=== PATIENT | male | born 1980 | race Two or more races ===

== ENCOUNTER 2025-06-01 16:23 | Emergency (ER) | payer SELFPAY ==
[~2025-06-01] VITALS: Ht 177.8 cm; Wt 77.1 kg
[2025-06-01 16:26] VITALS: BP 133/100; RESP 14; TEMP 98.7; O2SAT 99
--- NOTE | 2025-06-01 16:34 | ECG ---
[facility] Test Date: 2025-06-01 Test Time: 16:33:15 Pat Name: SHIRA KAPADIA Department: ED Room: Gender: M Scrum Master: OSCAR : 1980 Requested By: VINNIE BISHOP Order Number: [id number] Reading MD: Measurements Intervals Cardwell Rate: 67 P: 20 ID: [id number] QRS: 64 QRSD: 74 T: 51 QT: 383 QTc: 405 Interpretive Statements Sinus rhythm Baseline wander in lead(s) V5 Please click the below link to view image of tracing.
[2025-06-01] MEDS ORDERED: LIDOCAINE VISCOUS 2% 15ML UD PO ONE (16:45)
[2025-06-01] MEDS ORDERED: PANTOPRAZOLE 40 MG TAB PO ONE (16:45)
[2025-06-01] MEDS ORDERED: SUCRALFATE 1 GM TAB PO ONE (16:45)
[2025-06-01] MEDS ORDERED: SODIUM CHLORIDE 0.9% 1,000 ML IV ONE (16:45)
[2025-06-01 16:58] VITALS: PULSE 67
--- NOTE | 2025-06-01 16:58 | ED.PDOC ---
HPI Comments HPI: 44 year old male presents to the emergency department with a chief complaint of chest pain onset 2 days. Patient states he has been experiencing chest pain for the past 2 days, described as pressure sensation. Patient drinks ETOH daily, for decades. Spouse and daughter are with patient, patient states he wants help to quit ETOH. Denies dizziness, headache, nausea, vomiting, diarrhea, shortness of breath. No other symptoms or modifying factors present at this time. Initial Vitals BP: 133/100 HR: 64 RR: 14 O2 Sat: 99% Temp: 98.7 F Past Medical history: ETOH abuse Past Surgical history: Hysterectomy, Medications: Denies Social History: Denies smoking, and drug use. uses ETOH daily. Allergies: NKDA Anrold: cp, etoh, normal exam HPI: Poor Historian. REVIEW OF SYSTEMS: CONSTITUTIONAL: Denies acute: fever, diaphoresis, chills, generalized weakness. HEAD: Denies acute: headache, photophobia Eyes: Denies acute: Double vision, vision loss, eye pain, eye discharge. EARS: Denies acute: tinnitus, hearing loss, ear discharge, ear pain, THROAT: Denies acute: sore throat, swelling, difficulty swallowing , pain with swallowing, change in voice. NECK: Denies acute: neck pain, neck swelling, stiff neck. HEART: Denies acute : palpitations, LUNGS: Denies acute: SOB, wheezing, cough, hemoptysis ABDOMEN: Denies acute: abdominal pain, Nausea, Vomiting, diarrhea, melena , hematemesis, hematochezia SKIN: Denies acute: rash, redness, lesions, itchiness. EXTREMITIES: Denies acute: calf pain, numbness, tingling, weakness, denies pain in extremity. Denies acute: Low back pain. Neuro: Denies acute: focal neurological deficit, motor or sensory focal neurological deficit, tremors, seizure like activity, confusion, dizziness, change in mental status, loss of bowel or bladder function, cauda equina like symptoms. : Denies acute: dysuria, hematuria, flank pain, increase in urinary frequency. PSYCH: Denies acute: hallucination, suicidal ideation, homicidal ideation. PHYSICAL EXAM: General: -----mild---acute distress, awake and alert. Head: normocephalic, atraumatic. No raccoon's eyes, no salter sign. Neck: supple, trachea is midline, no swelling. Throat: Normal phonation. Eyes:, no erythema, no purulent discharge, no proptosis, no icterus. Heart: regular rate, regular rhythm, no significant murmur appreciated. Lungs: no apparent respiratory distress, Able to speak in full sentences. No wheezing, no rhonchi, no crackles. No stridors Clear to auscultation bilaterally. Abdomen: non tender to palpation, non distended, soft, no guarding, no rebound, + bowel sounds. Neuro: Awake, Alert, oriented to name, self, situation, follows commands GCS=15. Speech is normal. Skin: no petechia, no purpura, no cyanosis, non-pale, not jaundice. Lower extremities: --no - Pitting edema no deformity, no focal swelling, no calf TTP. Makes eye contact. moves all four extremities. Face: no apparent facial droop. Ambulating in the ED independently. ED COURSE: DISCLAIMER: This medical document was created using an electronic medical record system with voice recognition software and computerized dictation system. Although this document has been carefully reviewed, there might still be some phonetic and typographical errors. Occasional wrong-word or "sound-alike" substitutions may have occurred due to the inherent limitations of voice recognition software. These areas are purely typographical due to imperfections of the software programs and do not reflect any compromise in the patient's medical care. Please read the chart carefully and recognize, using context, where these substitutions have occurred. Chief Complaint: Chest Pain Time Seen by MD: 16:30 Reviewed Notes: Medications, Allergies Allergies: Coded Allergies: NO KNOWN ALLERGIES (Unverified , 06/01/25) Information Source: Patient, Spouse Mode of Arrival: Ambulatory Timing: Days Duration: Since onset Prehospital treatment: None Past Medical History PAST MEDICAL HISTORY: Denies Surgical History: Denies all surgeries Family History Family History: Reviewed,noncontributory to illness, No family hx of Cancer, No family hx of DM, No family hx of Heart francisco javier, No family hx of HTN, No family hx ofKidney francisco javier, No family hx of Liver francisco javier, No family hx of Lung francisco javier, No family hx of Stroke Social History Smoker: Non-Smoker Alcohol: Heavy Drugs: Denies Drug Use Lives In: Home EKG EKG : Pulse Rate (adult): 67 Cardiac Rhythm: NSR Was a procedure done? Was a procedure done?: No X-Ray, Labs, Meds, VS Vital Signs Date Time Temp Pulse Resp B/P (MAP) Pulse Ox O2 Delivery O2 Flow Rate FiO2 06/01/25 16:58 67 06/01/25 16:33 67 06/01/25 16:26 98.7 64 14 133/100 99 98.7 [facility] [id number] [id number] Ph: [phone] DIAGNOSTIC IMAGING Diagnostic Imaging Report : [id number] Signed PATIENT: SHIRA KAPADIA ACCT: [id number] UNIT: [id number] : 1980 LOC: ER ROOM / BED: / AGE / SEX: 44 / M ADM STATUS: REG ER SERVICE 28 ORDERING PHYSICIAN: VINNIE BISHOP MD PROCEDURE(s): CXR1 - CHEST XRAY 1 VIEW REASON: CHEST PAIN ORDER NUMBER(s): [id number], ACCESSION NUMBER(s): [id number] AP portable chest CLINICAL INDICATION: CHEST PAIN FINDINGS: Heart size is normal. No infiltrates or effusions. No bony thoracic abnormalities. IMPRESSION: 1. Normal chest x-ray. ATED BY: STEVE BARCENAS MD DICTATED DATE/TIME: 06/01/251718 SIGNED BY: STEVE BARCENAS MD SIGNED DATE/TIME: 06/01/251718 CC: Time of 1ST Reevaluation: 17:00 Reevaluation 1ST: Unchanged Patient Education/Counseling: Diagnosis, Treatment Family Education/Counseling: Diagnosis, Treatment Departure 1 Departure Time of Disposition: 19:08 Impression: Primary Impression: Chest pain Additional Impression: Alcohol abuse Disposition: LEFT AGAINST MEDICAL ADVICE Additional Instructions: You are leaving against medical advice. Please seek help regarding your alcohol addiction LUDIVINA. Please return to emergency department if you change your mind. Please see cardiology in 1-2 days. Please call for appointment. Discharged With: Self, Spouse Critical Care Note Critical Care Time?: No Heart Score Heart Score: Heart Score Response (Comments) Value Age <45 0 Total 0 I personally scribed for GINNY METCALF DO ([email or web address]) on 06/01/25 at 16:58. Electronically submitted by Morena Singh ([email or web address]). I personally scribed for GINNY METCALF DO ([email or web address]) on 06/01/25 at 17:42. Electronically submitted by Morena Singh ([email or web address]). GINNY METCALF DO Jun 01, 2025 16:58
--- NOTE | 2025-06-01 17:21 | DVH ---
AP portable chest CLINICAL INDICATION: CHEST PAIN FINDINGS: Heart size is normal. No infiltrates or effusions. No bony thoracic abnormalities. IMPRESSION: 1. Normal chest x-ray.
== END 2025-06-01 19:44 | disposition left against medical advice (07) ==
LOC: ER 16:23
DX: F10.10 Alcohol abuse, uncomplicated (principal); R07.9 Chest pain, unspecified
CPT/HCPCS: 71045; 93005